=== PATIENT | female | born 1985 | race Caucasian/White ===

== ENCOUNTER 2022-05-07 17:14 | Emergency (ER) | payer MEDICAID, SELFPAY ==
[~2022-05-07] VITALS: Ht 166.4 cm; Wt 106.8 kg
[~2022-05-07 17:14] MED LIST: CIPR-259 PO
[2022-05-07 18:25] LABS: BASOPHILS # (AUTO) 0.1 X10'3 (0-0.2); BASOPHILS % (AUTO) 0.7 % (0-1); EOSINOPHILS # (AUTO) 0.1 X10'3 (0-0.9); EOSINOPHILS % (AUTO) 0.9 % (0-6); HEMATOCRIT 38.6 % (35.0-45.0); HEMOGLOBIN 13.1 g/dl (12.0-16.0); LYMPHOCYTES % (AUTO) 28.6 % (21-51); MEAN CORPUSCULAR HEMOGLOBIN 27.5 PG (27.0-31.0); MEAN CORPUSCULAR HGB CONC 33.9 g/dL (33.0-36.5); MEAN CORPUSCULAR VOLUME 81.2 FL (78-98); MEAN PLATELET VOLUME 8.3 FL (7.4-10.4); MONOCYTES # (AUTO) 0.6 X10'3 (0-0.9); MONOCYTES % (AUTO) 5.6 % (2-12); NEUTROPHILS # (AUTO) 6.7 X10'3 (1.8-7.7); NEUTROPHILS % (AUTO) 64.2 % (42-75); PLATELET COUNT 257 X10'3 (140-440); RED BLOOD COUNT 4.76 X10'6 (4.20-5.60); RED CELL DISTRIBUTION WIDTH 13.6 % (11.5-14.5); WHITE BLOOD COUNT 10.5 X10'3 (4.5-11.0)
[2022-05-07 18:44] LABS: ALANINE AMINOTRANSFERASE 33 U/L (12-78); ALBUMIN 4.1 G/DL (3.4-5.0); ALBUMIN/GLOBULIN RATIO 1.1 (1.1-1.5); ALKALINE PHOSPHATASE 87 IU/L (46-116); AMYLASE 57 U/L (25-115); ANION GAP 9 (8-16); ASPARTATE AMINO TRANSFERASE 17 U/L (10-37); BILIRUBIN,TOTAL 0.2 MG/DL (0.1-1.0); BLOOD UREA NITROGEN 19 MG/DL (7-18); BUN/CREATININE RATIO 23.5 (6.6-38.0); CHLORIDE 105 MMOL/L (99-107); CREATININE 0.81 MG/DL (0.40-0.90); GLUCOSE 90 MG/DL (70-104); LIPASE 110 U/L (73-393); POTASSIUM 3.8 MMOL/L (3.5-5.1); SODIUM 142 MMOL/L (135-145); TOTAL CARBON DIOXIDE 27.7 MMOL/L (24-32); TOTAL PROTEIN 7.8 G/DL (6.4-8.2); eGFR 80 ML/MIN
[2022-05-07 18:50] LABS: CALCIUM 9.3 MG/DL (8.5-10.1)
--- NOTE | 2022-05-07 19:12 | NUR ---
Ultra-sound studies in progress.
[2022-05-07] MEDS ORDERED: ondansetron 4mg rapidly disintigrating tab PO ONE (19:35)
[2022-05-07] MEDS ORDERED: TRAM50TA2 PO (19:35)
[2022-05-07] MEDS ORDERED: traMADol 50MG tablet PO ONE (19:35)
[2022-05-07] MEDS ORDERED: ONDA4TAB12 PO (19:35)
[2022-05-07 20:11] VITALS: BP 128/80
== END 2022-05-07 20:05 | disposition home or self-care (01) ==
LOC: ER 17:14
DX: R10.11 Right upper quadrant pain (principal); R07.89 Other chest pain; R11.0 Nausea; Z90.710 Acquired absence of both cervix and uterus; Z72.89 Other problems related to lifestyle; Z88.1 Allergy status to other antibiotic agents; Z88.8 Allergy status to other drugs, medicaments and biological substances; Z79.2 Long term (current) use of antibiotics
CPT/HCPCS: 36415; 71045; 76700; 80053; 82150; 83690; 83880; 84484; 85025; 93005; 99285

== ENCOUNTER 2024-11-02 07:11 | Emergency (ER) | payer MEDICAID, OTHER ==
[~2024-11-02] VITALS: Ht 165.1 cm; Wt 77.3 kg
[~2024-11-02 07:11] MED LIST changes: +ONDA-243 PO
[2024-11-02 07:16] VITALS: TEMP 97
[2024-11-02] MEDS ORDERED: ALB0.5UD IH (08:42)
[2024-11-02] MEDS ORDERED: PRED5TAB PO (08:42)
[2024-11-02] MEDS ORDERED: ADAL40PE5 SUBCUT (08:42)
[2024-11-02] MEDS: ibuprofen tablet 400 MG TABLET PO ONE (09:20)
[2024-11-02] MEDS: diazepam 5mg tablet PO ONE (09:20)
[2024-11-02] MEDS: morphine 10mg/ml inj. IM ONE (09:20)
[2024-11-02] MEDS: ondansetron 4mg rapidly disintigrating tab PO ONE (09:20)
[2024-11-02] MEDS ORDERED: TIZA4CAP PO (11:10)
[2024-11-02] MEDS ORDERED: NAPR-56 PO (11:10)
[2024-11-02] MEDS ORDERED: tizanidine 4mg tablet PO PRN (11:15)
[2024-11-02] MEDS: oxyCODONE/APAP 10/325mg tablet PO ONE (11:30)
[2024-11-02 13:33] VITALS: BP 124/86; PULSE 66; RESP 14; O2SAT 100
== END 2024-11-02 13:36 | disposition home or self-care (01) ==
LOC: ER 07:13
DX: S39.012A Strain of muscle, fascia and tendon of lower back, initial encounter (principal); Z88.0 Allergy status to penicillin; Z88.8 Allergy status to other drugs, medicaments and biological substances; Z90.710 Acquired absence of both cervix and uterus; W01.0XXA Fall on same level from slipping, tripping and stumbling without subsequent striking against object, initial encounter; Y93.89 Activity, other specified; Y92.89 Other specified places as the place of occurrence of the external cause; Y99.8 Other external cause status
CPT/HCPCS: 72100; 72131; 73502; 96372; 99285; J2274

== ENCOUNTER 2024-11-03 09:32 | Emergency (ER) | payer MEDICAID ==
[~2024-11-03] VITALS: Ht 165.1 cm; Wt 77.5 kg
[~2024-11-03 09:32] MED LIST changes: +ADAL40PE5 SUBCUT; +ALB0.5UD IH; +NAPR-56 PO; +PRED5TAB PO; +TIZA4CAP PO
[2024-11-03 09:34] VITALS: BP 169/79; PULSE 84; RESP 18; TEMP 98.1; O2SAT 100
== END 2024-11-03 11:15 | disposition left against medical advice (07) ==
LOC: ER 09:33
DX: M54.50 Low back pain, unspecified (principal); M25.551 Pain in right hip; Z88.0 Allergy status to penicillin; Z53.21 Procedure and treatment not carried out due to patient leaving prior to being seen by health care provider; Z88.8 Allergy status to other drugs, medicaments and biological substances

== ENCOUNTER 2025-02-16 18:32 | Emergency (ER) | payer MEDICAID ==
[~2025-02-16] VITALS: Ht 165.1 cm; Wt 77.3 kg
[~2025-02-16 18:32] MED LIST changes: -NAPR-56 PO
[2025-02-16 18:59] LABS: BASOPHILS # (AUTO) 0.1 X10'3 (0-0.2); BASOPHILS % (AUTO) 0.8 % (0-1); EOSINOPHILS # (AUTO) 0.3 X10'3 (0-0.9); EOSINOPHILS % (AUTO) 3.2 % (0-6); HEMATOCRIT 35.8 % (35.0-45.0); HEMOGLOBIN 12.1 g/dl (12.0-16.0); LYMPHOCYTES # (AUTO) 2.6 X10'3 (1.1-4.8); LYMPHOCYTES % (AUTO) 30.7 % (21-51); MEAN CORPUSCULAR HEMOGLOBIN 29.2 PG (27.0-31.0); MEAN CORPUSCULAR HGB CONC 33.8 g/dL (33.0-36.5); MEAN CORPUSCULAR VOLUME 86.4 FL (78-98); MEAN PLATELET VOLUME 7.8 FL (7.4-10.4); MONOCYTES # (AUTO) 0.5 X10'3 (0-0.9); MONOCYTES % (AUTO) 6.1 % (2-12); NEUTROPHILS % (AUTO) 59.2 % (42-75); PLATELET COUNT 229 X10'3 (140-440); RED BLOOD COUNT 4.14 X10'6 (4.20-5.60); RED CELL DISTRIBUTION WIDTH 13.3 % (11.5-14.5); WHITE BLOOD COUNT 8.5 X10'3 (4.5-11.0)
[2025-02-16 19:14] LABS: ALANINE AMINOTRANSFERASE 43 U/L (12-78); ALBUMIN 3.7 G/DL (3.4-5.0); ALBUMIN/GLOBULIN RATIO 1.2 (1.1-1.5); ALKALINE PHOSPHATASE 88 IU/L (46-116); ANION GAP 3 (8-16); ASPARTATE AMINO TRANSFERASE 20 U/L (10-37); BILIRUBIN,TOTAL 0.4 MG/DL (0.1-1.0); BLOOD UREA NITROGEN 12 MG/DL (7-18); BUN/CREATININE RATIO 15.4 (10.0-20.0); CALCIUM 8.9 MG/DL (8.5-10.1); CHLORIDE 107 MMOL/L (99-107); CREATININE 0.78 MG/DL (0.40-0.90); GLUCOSE 95 MG/DL (70-104); LIPASE 47 U/L (16-77); SODIUM 143 MMOL/L (135-145); TOTAL CARBON DIOXIDE 32.9 MMOL/L (24-32); TOTAL PROTEIN 6.9 G/DL (6.4-8.2); eCRCL 88 ML/MIN; eGFR 83 ML/MIN
[2025-02-16] MEDS ORDERED: PRED20TA PO (19:27)
[2025-02-16] MEDS ORDERED: OMEP40CA21 PO (19:27)
--- NOTE | 2025-02-16 19:27 | Physician Documentation ---
History of Present Illness Chief Complaint: Abdominal Pain Stated Complaint: CROHN'S FLAIR UP Time Seen by MD: 18:56 Primary Medical Doctor: [facility] in [facility] 49-year-old female presents to the ED with a complaint of the Crohn's flare-up. He has been managed in the outpatient setting and her doctor stated that she did have elevated ferritin levels and signs of inflammation. Reports overall most body pain some and GI pain combined. Medication Reconciliation Allergies: Coded Allergies: amoxicillin (Verified Allergy, Unknown, hives, 11/03/24) sumatriptan (Verified Allergy, Unknown, 11/03/24) Scheduled Adalimumab (Humira Pen), 1 SYR SUBCUT Q2W, (Reported) Ciprofloxacin HCl (Cipro), 1 TABLET PO BID Prednisone* (Prednisone*), 4 TAB PO DAILY, (Reported) Tizanidine Hcl (Zanaflex), 1 CAP PO Q8H Scheduled PRN Albuterol Sulfate Nebs* (Proventil Nebs*), 2.5 MG IH Q4H PRN for SOB or wheezing, (Reported) ONDANSETRON ODT 4mg tablet (Ondansetron Odt), 1 TABLET PO Q6H PRN for nausea/vomiting Past Medical History Past Medical History: No Pertinent History Past Surgical History: hysterectomy Alcohol Use: Occasionally Drug Use: none Lives with: Family Lives In: Home Occupation: employed Review of Systems All Other Systems at this time: Reviewed and Negative ROS As stated above in the HPI, otherwise all systems are reviewed and negative. Physical Exam Vital Signs: Heart Rate: 83, Respiratory Rate: 16, BP: 116/71, Pulse Oximetry: 99, Weight: 77.270 Oxygen Flow Rate: 0 Physical Exam General: Alert, no apparent distress. Cardiovascular: Regular rate and rhythm, no murmurs. Gastrointestinal: Soft, tender midepigastric Neurologic: Oriented x4. Skin: Normal color, warm and dry. No edema, no ecchymosis. Progress Results/Orders Results/Orders Vital Signs 02/16/25 18:37 Pulse 83 Resp 16 B/P (MAP) 116/71 Pulse Ox 99 O2 Flow Rate 0 Laboratory Tests Test 02/16/25 18:53 White Blood Count 8.5 Red Blood Count 4.14 L Hemoglobin 12.1 Hematocrit 35.8 Mean Corpuscular Volume 86.4 Mean Corpuscular Hemoglobin 29.2 Mean Corpuscular Hemoglobin Concent 33.8 Red Cell Distribution Width 13.3 Platelet Count 229 Mean Platelet Volume 7.8 Neutrophils (%) (Auto) 59.2 Lymphocytes (%) (Auto) 30.7 Monocytes (%) (Auto) 6.1 Eosinophils (%) (Auto) 3.2 Basophils (%) (Auto) 0.8 Neutrophils # (Auto) 5.0 Lymphocytes # (Auto) 2.6 Monocytes # (Auto) 0.5 Eosinophils # (Auto) 0.3 Basophils # (Auto) 0.1 CBC Comment Sodium Level 143 Potassium Level 5.0 Chloride Level 107 Carbon Dioxide Level 32.9 H Anion Gap 3 L Blood Urea Nitrogen 12 Creatinine 0.78 Estimated GFR/1.73 m2 83 BUN/Creatinine Ratio 15.4 Glucose Level 95 Calcium Level 8.9 Total Bilirubin 0.4 Aspartate Amino Transf (AST/SGOT) 20 Alanine Aminotransferase (ALT/SGPT) 43 Alkaline Phosphatase 88 Total Protein 6.9 Albumin 3.7 Globulin 3.2 Albumin/Globulin Ratio 1.2 Lipase 47 Chemistry Comments Medical Decision Making Findings This patient's laboratory values are very reassuring no signs of infectious processes or electrolyte abnormalities. she is being followed in the outpatient setting . I don't see any reason pursue further evaluation. Started on prednisone taper and start her on omeprazole has a proton pump inhi bitor Differential Dx:Considerations: Include: AAA, -Complete, - Incomplete, -Inevitable, -Missed, -Threatened, Abruptio placentae, Angina/MO, Aortic dissection, Appendicitis, Bowel obstruction, Cholangitis, Cholelithasis, Constipation, Diverticular disease, Esophageal rupture, Esophagitis, Gastritis/PUD, Gastroenteritis, GI hemorrhage, Hernia, Hepatitis, Inflammatory BD, Ischemic bowel, Ovarian cyst/torsion, Pancreatitis, PID, Porphyria, Trauma, intraabdominal, Urinary obstruction, Urinary tract infection, Urolithiasis, Other Departure Disposition: HOME / SELF CARE / HOMELESS Impression: Primary Impression: Abdominal pain Additional Impression: Crohn disease Discharge Instructions: Crohn's Disease Referrals: NO PRIMARY CARE PROVIDER (PCP) Prescriptions Omeprazole (Prilosec) 40 Mg Capsule 1 CAP PO DAILY for 30 Days, #30 CAP Prov: SONG MARTINEZ VICE PRESIDENT OF INSTRUCTION 02/16/25 Prednisone* (Prednisone*) 20 Mg Tablet 1 TAB PO Q12H for 5 Days, #10 TAB Prov: SONG MARTINEZ VICE PRESIDENT OF INSTRUCTION 02/16/25 Education Educated: Patient Signature Scribe Signature: g Attestation: The note accurately reflects work and decisions made by me.Song Martinez - PACHECO 02/16/25 19:25 SONG MARTINEZ NP February 16, 2025 19:26
[2025-02-16] MEDS: predniSONE 20 mg tablet PO ONE (20:05)
[2025-02-16] MEDS: HYDROcodone/acetaminophen 10/325mg tab PO ONE (20:06)
[2025-02-16 20:08] VITALS: BP 122/87; PULSE 132; RESP 20; O2SAT 97
== END 2025-02-16 20:11 | disposition home or self-care (01) ==
LOC: ER 18:33
DX: K50.90 Crohn's disease, unspecified, without complications (principal); Z88.1 Allergy status to other antibiotic agents; Z88.8 Allergy status to other drugs, medicaments and biological substances; Z90.710 Acquired absence of both cervix and uterus; Z79.899 Other long term (current) drug therapy; Z72.89 Other problems related to lifestyle
CPT/HCPCS: 36415; 80053; 83690; 85025; 99283; J7512

== ENCOUNTER 2025-04-08 20:42 | Emergency (ER) | payer MEDICAID ==
[~2025-04-08] VITALS: Ht 165.1 cm; Wt 71.0 kg
[2025-04-08 20:54] VITALS: TEMP 98
--- NOTE | 2025-04-08 22:33 | Physician Documentation ---
History of Present Illness ~ Chief Complaint: Abdominal Pain Stated Complaint: ABD PAIN Time Seen by MD: 22:32 Primary Medical Doctor: [facility] in [facility] Patient presents to the emergency room with two month history of nausea vomiting and abdominal pain. She endorses history of Crohn's. She has been referred to [facility] for her Crohn's diagnosis. She was seen earlier today at [facility] labs were performed which were reassuring. It Zofran and prednisone was also prescribed. She states she continues to have significant nausea and whole- body pain. No fevers and no bloody stools reported. Medication Reconciliation Allergies: Coded Allergies: amoxicillin (Verified Allergy, Unknown, hives, 04/08/25) sumatriptan (Verified Allergy, Unknown, 04/08/25) Scheduled Adalimumab (Humira Pen), 1 SYR SUBCUT Q2W, (Reported) Ciprofloxacin HCl (Cipro), 1 TABLET PO BID Prednisone* (Prednisone*), 4 TAB PO DAILY, (Reported) Tizanidine Hcl (Zanaflex), 1 CAP PO Q8H Scheduled PRN Albuterol Sulfate Nebs* (Proventil Nebs*), 2.5 MG IH Q4H PRN for SOB or wheezing , (Reported) ONDANSETRON ODT 4mg tablet (Ondansetron Odt), 1 TABLET PO Q6H PRN for nausea/vomiting Past Medical History Past Medical History: No Pertinent History Past Surgical History: hysterectomy Alcohol Use: Occasionally Drug Use: none Lives with: Family Lives In: Home Occupation: employed Review of Systems ROS All review of systems negative except as per HPI Physical Exam Vital Signs: Temperature: 98.0, Source: Oral, Heart Rate: 62, Respiratory Rate: 14, BP: 116/81, Pulse Oximetry: 99, Weight: 71.000 Oxygen Flow Rate: 0 Physical Exam General: Patient is awake, alert, oriented x4 in no acute distress Head: Normocephalic and atraumatic. Eyes: Conjunctival normal. EOMI. PERRL. ENT: Mucous membranes moist. Neck: Supple, trachea is midline. Chest: Clear to auscultation bilaterally without rales, rhonchi, or wheezes. There is no accessory muscle use or retractions. Cardiac: RRR without murmurs, gallops, or rubs. Abd: Soft, nondistended, epigastric tenderness to palpation without peritonitis Progress Results/Orders Results/Orders Completed Orders - MIKI DODSON MD Normal Saline 1000ml (0.9% Sodium Chlori (04/08/25 22:50) Ondansetron Inj. (Zofran 4mg/2ml Vial) (04/08/25 22:50) Metoclopramide Inj (Reglan Inj) (04/08/25 22:50) Diphenhydramine Inj (Benadryl Inj.) (04/08/25 22:50) Acetaminophen 1,000mg/100ml Iv (Ofirmev (04/08/25 22:50) Fentanyl/Pf (Fentanyl 0.05 Mg/Ml Syringe (04/08/25 22:50) Medications Received in ER Medications (Trade) Dose Ordered Sig/Radha Route PRN Reason Start Time Stop Time Status Last Admin Dose Admin Sodium Chloride 1,000 ml @ 1,000 mls/hr ONCE ONCE IV 04/08/25 22:50 04/08/25 23:49 DC 04/08/25 23:20 1,000 MLS/HR (Zofran 4mg/2ml vial) 8 mg ONCE ONCE IV 04/08/25 22:50 04/08/25 22:52 DC 04/08/25 23:04 8 MG (Reglan inj) 10 mg ONCE ONCE IV 04/08/25 22:50 04/08/25 22:52 DC 04/08/25 23:08 10 MG (Benadryl inj.) 25 mg ONCE ONCE IV 04/08/25 22:50 04/08/25 22:52 DC 04/08/25 23:20 25 MG Acetaminophen 100 ml @ 400 mls/hr ONCE ONCE IV 04/08/25 22:50 04/08/25 23:04 DC 04/08/25 23:20 400 MLS/HR (fentaNYL 0.05 MG/ML syringe) 50 mcg ONCE ONCE IV 04/08/25 22:50 04/08/25 22:52 DC 04/08/25 23:15 50 MCG Vital Signs 04/08/25 04/08/25 04/08/25 04/08/25 20:54 22:17 22:23 23:15 Temp 98.0 Pulse 87 62 Resp 16 14 18 B/P (MAP) 113/76 116/81 (93) Pulse Ox 96 99 O2 Flow Rate 0 Medical Decision Making Findings Patient presents to the emergency room with two month history of vomiting and joint pains. Differentials include but are not limited to fibromyalgia electrolyte disturbances dehydration gastroparesis gastritis cholecystitis therefore emergent labs were considered however [facility] showed that patient's labs today were reassuring and given onset of symptoms I do not feel repeat emergent labs is necessary. Discussed CT scan with the patient and utilizing shared decision-making we will defer any CT scans at this time and treat her symptomatically. Patient's symptoms improved. ER precautions discussed as well as the knees follow up with her doctors Departure Disposition: HOME / SELF CARE / HOMELESS Impression: Primary Impression: Myalgia Additional Impression: Vomiting Condition: Stable Discharge Instructions: Nausea and Vomiting, Adult Referrals: NO PRIMARY CARE PROVIDER (PCP) Prescriptions Hydrocodone Bit/Acetaminophen 5/325 MG (Dike 5/325 MG) 5 Mg/325 Mg Tablet 1 TAB PO Q4-6 hours PRN for pain, #10 TAB Prov: MIKI DODSON MD 04/09/25 Metoclopramide Hcl* (Metoclopramide Hcl*) 10 Mg Tablet 1 TAB PO Q6H for Nausea, #20 TAB Prov: MIKI DODSON MD 04/09/25 Education Educated: Patient Educated regarding: diagnosis, treatment, need for follow up Signature Scribe Signature: No scribe Attestation: The note accurately reflects work and decisions made by me.Miki Dodson MD 04/09/25 00:11 MIKI DODSON MD Apr 08, 2025 22:33
[2025-04-08] MEDS: ondansetron/PF 4mg/2ml inj IV ONE (23:04)
[2025-04-08] MEDS: metoclopramide 5 mg/ml inj IV ONE (23:08)
[2025-04-08] MEDS: fentaNYL/PF 50MCG/1 ML 2ML syringe IV ONE (23:15)
[2025-04-08] MEDS: acetaminophen 1,000mg/100ml IV 100 ML IV ONE (23:20)
[2025-04-08] MEDS: normal saline 1000ml 1,000 ML IV ONE (23:20)
[2025-04-09] MEDS ORDERED: METO10TA3 PO (00:11)
[2025-04-09] MEDS ORDERED: HYDR-3965 PO (00:11)
[2025-04-09 01:45] VITALS: BP 123/75; PULSE 60; O2SAT 98
[2025-04-09 01:47] VITALS: RESP 16
[2025-04-09] MEDS: fentaNYL/PF 50MCG/1 ML 2ML syringe IV ONE (01:47)
== END 2025-04-09 02:05 | disposition home or self-care (01) ==
LOC: ER 20:43
DX: M79.18 Myalgia, other site (principal); R10.816 Epigastric abdominal tenderness; R11.2 Nausea with vomiting, unspecified; Z88.0 Allergy status to penicillin; Z88.8 Allergy status to other drugs, medicaments and biological substances
CPT/HCPCS: 96365; 96366; 96375; 96376; 99284; J0131; J1200; J2405; J2765; J3010; J7030

== ENCOUNTER 2025-05-30 18:47 | Emergency (ER) | payer MEDICAID ==
[~2025-05-30] VITALS: Ht 165.1 cm; Wt 72.2 kg
[2025-05-30 19:21] VITALS: BP 108/63; PULSE 74; O2SAT 99
[2025-05-30 19:49] LABS: LEUKOCYTE ESTERASE ,URINE MODERATE (Neg); NITRITES, URINE POSITIVE (Neg); OCCULT BLOOD,URINE LARGE (Neg); URINE HCG NEGATIVE (NEG)
[2025-05-30 19:53] LABS: UA COLLECTION TYPE CLN CATCH MIDSTREAM
[2025-05-30 19:56] LABS: SQUAMOUS EPITHELIAL CELL,UR FEW /LPF (FEW)
[2025-05-30 21:00] LABS: MEAN PLATELET VOLUME 7.9 FL (7.4-10.4); RED CELL DISTRIBUTION WIDTH 13.4 % (11.5-14.5)
[2025-05-30 21:17] LABS: CREATININE 0.84 MG/DL (0.40-0.90); TOTAL CARBON DIOXIDE 32.5 MMOL/L (24-32); eCRCL 82 ML/MIN; eGFR 76 ML/MIN
[2025-05-30] MEDS ORDERED: cefpodoxime proxetil 100mg tablet PO SCH (21:30)
[2025-05-30] MEDS ORDERED: PHEN-824 PO (21:32)
[2025-05-30] MEDS ORDERED: CEFP200T13 PO (21:32)
--- NOTE | 2025-05-30 21:36 | Physician Documentation ---
History of Present Illness ~ Chief Complaint: Abdominal Pain Stated Complaint: PELVIC PAIN Time Seen by MD: 20:03 Primary Medical Doctor: [facility] in [facility] This is a 39-year-old female who presents for evaluation of several days of dysuria, frequency, sensation of incomplete voiding, suprapubic pain and left- sided flank pain. Similar to prior urinary tract infections. The particular palliating or aggravating factors. Did not attempt to treat it. Denies any fever or chills. Denies any nausea or vomiting. Denies any concern for tobacco, alcohol or illicit substances use Medication Reconciliation Allergies: Coded Allergies: amoxicillin (Verified Allergy, Unknown, hives, 04/08/25) sumatriptan (Verified Allergy, Unknown, 04/08/25) Scheduled Adalimumab (Humira Pen), 1 SYR SUBCUT Q2W, (Reported) Ciprofloxacin HCl (Cipro), 1 TABLET PO BID Prednisone* (Prednisone*), 4 TAB PO DAILY, (Reported) Tizanidine Hcl (Zanaflex), 1 CAP PO Q8H Scheduled PRN Albuterol Sulfate Nebs* (Proventil Nebs*), 2.5 MG IH Q4H PRN for SOB or wheezing, (Reported) ONDANSETRON ODT 4mg tablet (Ondansetron Odt), 1 TABLET PO Q6H PRN for nausea/vomiting Past Medical History Past Medical History: No Pertinent History Past Surgical History: hysterectomy Alcohol Use: Occasionally Drug Use: none Lives with: Family Lives In: Home Occupation: employed Review of Systems ROS 10 point review of systems was performed and unless noted above in HPI is negative for acute process/complaint. Physical Exam Vital Signs: Temperature: 98.5, Source: Oral, Heart Rate: 74, Respiratory Rate: 16, BP: 108/63, Pulse Oximetry: 99, Weight: 72.200 Physical Exam Physical examination: GENERAL: Awake, alert, oriented, GCS 15, no apparent distress, non-toxic appearing, answers questions, follows commands appropriately. Examined in triage HEENT: Atraumatic, normocephalic, pupils equal, extraocular muscles intact Active gross movements, sclerae anicteric, mucus membranes moist, no stridor. NECK: Midline, no JVD CARDIOVASCULAR: Good skin perfusion without evidence of pallor, mottling. PULMONARY: Nonlabored, symmetric chest rise, no audible wheezing, no accessory muscle use, no respiratory distress, speaking in full sentences. GASTROINTESTINAL: Not distended. NEUROLOGIC: Lucid with normal mental status. Normal facial symmetry. Moves all extremities symmetrically and with purpose. No truncal ataxia. Speech is fluid without evidence of dysarthria or aphasia, no focal deficits appreciated. EXTREMITIES: Acute deformities Skin: warm, dry PSYCHIATRIC: Normal affect, normal insight, normal concentration. Focused exam: [] Progress Results/Orders Results/Orders Orders - ABHILASH DIAZ DO Cult Urine + [address] (05/30/25 19:57) Completed Orders - ABHILASH DIAZ DO Hcg, Ur Ql (05/30/25 19:27) Ua W/Microscopic, Cult If Ind (05/30/25 19:30) Vital Signs 05/30/25 19:21 Temp 98.5 Pulse 74 Resp 16 B/P (MAP) 108/63 Pulse Ox 99 Laboratory Tests Test 05/30/25 19:30 05/30/25 20:54 Urine Specimen Description Cln catch midstream Urine Color Yellow Urine Clarity Cloudy Urine pH 6.0 Urine Specific [place] 1.025 Urine Protein 100 H Urine Glucose (UA) Negative Urine Ketones Negative Urine Occult Blood Large H Urine Nitrite Positive H Urine Bilirubin Negative Urine Urobilinogen 0.2 Urine Leukocyte Esterase Moderate H Urine RBC 50-100 Urine WBC Tntc H Urine Squamous Epithelial Cells Few Urine Bacteria 3+ Urine Culture Indicated Indicated Volume Urine Centrifuged 10 ml Urine HCG, Qualitative Negative Urine Comment White Blood Count 12.3 H Red Blood Count 4.28 Hemoglobin 12.8 Hematocrit 37.4 Mean Corpuscular Volume 87.5 Mean Corpuscular Hemoglobin 29.9 Mean Corpuscular Hemoglobin Concent 34.2 Red Cell Distribution Width 13.4 Platelet Count 255 Mean Platelet Volume 7.9 Neutrophils (%) (Auto) 74.7 Lymphocytes (%) (Auto) 17.2 L Monocytes (%) (Auto) 5.8 Eosinophils (%) (Auto) 1.9 Basophils (%) (Auto) 0.4 Neutrophils # (Auto) 9.1 H Lymphocytes # (Auto) 2.1 Monocytes # (Auto) 0.7 Eosinophils # (Auto) 0.2 Basophils # (Auto) 0.1 CBC Comment Sodium Level 141 Potassium Level 4.3 Chloride Level 104 Carbon Dioxide Level 32.5 H Anion Gap 5 L Blood Urea Nitrogen 14 Creatinine 0.84 Estimated GFR/1.73 m2 76 BUN/Creatinine Ratio 16.7 Glucose Level 78 Calcium Level 9.3 Total Bilirubin 0.8 Aspartate Amino Transf (AST/SGOT) 19 Alanine Aminotransferase (ALT/SGPT) 37 Alkaline Phosphatase 83 Total Protein 7.4 Albumin 4.1 Globulin 3.3 Albumin/Globulin Ratio 1.2 Lipase 34 Chemistry Comments Microbiology Date/Time Source Procedure Growth Status 05/30/25 19:57 Urine Clean Catch Midstream Urine Culture - Preliminary Culture received. Resulted Medical Decision Making Findings Facility Status: ED Holds, [facility] process The plan was discussed with the patient, who demonstrates clear understanding of the plan and is in agreement with the plan unless otherwise noted in the chart. All questions have been answered, all concerns were addressed unless otherwise documented. I was available throughout their ED stay for frequent reassessment and questions. Differential Diagnoses (considered and possible or likely): [Urinary tract infection, pyelitis, pyelonephritis, less likely sepsis, well-appearing, unlikely emphysematous pyelonephritis.] ??Differential Diagnoses (considered and unlikely, not requiring evaluation c urrently): [No evidence of trauma. Unlikely to represent acute intra-abdominal process requiring surgical intervention] MDM Data Please see [facility] for the following: Independent Historians and external Records Review. Historian: [Patient] Independent Historians: ?[Record review] Medication Management: [Reviewed medication list] Social History and determinants: [Reviewed] Please see the body of the note for the following: Any independent interpretat ions of ECG, imaging studies. All vitals signs/haemodynamics, ordered tests were independently reviewed and interpreted by myself. Nursing triage complaint and vitals reviewed, additional nursing notes were reviewed as available and I agree unless otherwise noted or documented in contradiction in the chart Vital Signs: Independently reviewed Labs: Independently interpreted Imaging: Independently interpreted Old Medical Records: Independently reviewed, see [facility] for relevant summary and information Pulse Oximetry: [96%] interpreted as [normal on room air] by me Additionally notably showing: [Hemodynamically stable. Minimal leukocytosis. UA is fulminant with a positive for UTI. Normal renal function.] Tests considered but not ordered include: [Imaging does not appear to be necessary] Social Determinants of Health Impact: Patient was evaluated in [facility], or [facility] [place] access to healthcare due to below par ratio of patient to medical providers. [] Comorbid Conditions Impacting Present Evaluation and Care/Treatment: [Prior history of UTIs] Management Discussions with other Healthcare Providers: [None] Treatment and Disposition Medication Management (Given or considered): [Pain management, initial dose of antibiotics]. See EMR for details Consideration for Hospitalization/Escalation/Deescalation of Care: Admission for observation has been considered, [however the patient is able to tolerate p.o., their symptoms are controlled, they are able to rely on oral medications, and their chief complaint/diagnosis can be managed on outpatient basis.] ?ED Course:?[No clinical deterioration] ?Shared decision making: Patient is hemodynamically stable for discharge home with follow with their primary care provider. [ ] Specific and cautious return precautions provided and discussed with full understanding. Any incidental findings were also discussed and follow up recommendations given. [] All questions answered. Patient/family were able to verbalize back return precautions. Patient/family agree to plan. Copies of imaging and laboratory studies were provided. Code status:?FULL Please see the full Electronic Medical Record for full details of nursing documentation, medications list, other records of complete past medical history and conditions, vital signs, laboratory studies, and any radiologic study interpretations by radiologists. Portions of this note were completed using [employer] dictation software and as a result there may exist minor errors in spelling. I have reviewed elements of past family and social history and agree as included in note. Departure Disposition: 01 HOME / SELF CARE / HOMELESS Impression: Primary Impression: Pyelonephritis Condition: Improved Discharge Instructions: Pyelonephritis, Adult Referrals: NO PRIMARY CARE PROVIDER (PCP) Prescriptions Cefpodoxime Proxetil (Vantin) 200 Mg Tablet 1 TAB PO Q12H for 7 Days, #14 TAB Prov: ABHILASH DIAZ DO 05/30/25 Phenazopyridine HCl (Pyridium) 100 Mg Tablet 1 TAB PO Q8H for urinary discomfort for 2 Days, #6 TAB 0 Refills Prov: ABHILASH DIAZ DO 05/30/25 Education Educated: Patient Educated regarding: diagnosis, treatment, prognosis, need for follow up Signature Scribe Signature: No scribe Attestation: This note accurately reflects clinical decisions, work performed by myself, DO EMILY Rievra NICHOLAS M DO May 30, 2025 21:36
[2025-05-30 22:08] VITALS: RESP 16
[2025-05-30] MEDS: phenazopyridine 100mg tablet PO ONE (22:24)
[2025-05-30 22:27] VITALS: TEMP 98.5
== END 2025-05-30 22:30 | disposition home or self-care (01) ==
LOC: ER 18:48
DX: N12 Tubulo-interstitial nephritis, not specified as acute or chronic (principal); Z88.0 Allergy status to penicillin; Z88.8 Allergy status to other drugs, medicaments and biological substances; Z90.710 Acquired absence of both cervix and uterus
CPT/HCPCS: 36415; 80053; 81001; 81025; 83690; 85025; 87077; 87088; 87186; 99283

== ENCOUNTER 2025-05-31 08:56 | Inpatient (IN) | payer MEDICAID ==
[~2025-05-31] VITALS: Ht 165.1 cm; Wt 69.3 kg
[~2025-05-31 08:56] MED LIST changes: +CEFP200T13 PO; +PHEN-824 PO
--- NOTE | 2025-05-31 09:36 | Physician Documentation ---
History of Present Illness ~ Chief Complaint: Flank Pain Stated Complaint: KIDNEY INFECTION Time Seen by MD: 09:59 OK to notify your PCP?: Yes Primary Medical Doctor: Werner Serna in [place] Source: patient, RN/, RN notes reviewed, old records Mode of Arrival: POV Exam Limitations: no limitations HPI HPI below by attending physician SON Douglass: BED 07 This patient is a 39 y/o female who presents to ED with chief complaint of abdominal pain and flank pain. Patient was seen here yesterday for these symptoms, and diagnosed with a kidney infection. She was discharged with antibiotics, but has not started taking them yet. She returns today stating her pain is uncontrollable, and she is also severely nauseated. She states her pain is localized in her lower abdomen, and she is also very sore in her flank area bilaterally. She denies any fevers or vomiting. Patient notes that she did have frequent kidney infections as a teenager. Patient is allergic to Penecillin. Patient denies any other associated symptoms at this time. Patient denies any other alleviating or exacerbating factors. Day of Onset: May 31, 2025 Medication Reconciliation Allergies: Coded Allergies: amoxicillin (Verified Allergy, Unknown, hives, 04/08/25) sumatriptan (Verified Allergy, Unknown, 04/08/25) Scheduled Adalimumab (Humira Pen), 1 SYR SUBCUT Q2W, (Reported) Cefpodoxime Proxetil (Vantin), 1 TAB PO Q12H Ciprofloxacin HCl (Cipro), 1 TABLET PO BID Phenazopyridine HCl (Pyridium), 1 TAB PO Q8H Prednisone* (Prednisone*), 4 TAB PO DAILY, (Reported) Tizanidine Hcl (Zanaflex), 1 CAP PO Q8H Scheduled PRN Albuterol Sulfate Nebs* (Proventil Nebs*), 2.5 MG IH Q4H PRN for SOB or wheez ing, (Reported) ONDANSETRON ODT 4mg tablet (Ondansetron Odt), 1 TABLET PO Q6H PRN for nausea /vomiting Past Medical History Past Medical History: UTI Past Surgical History: hysterectomy Smoking Status: Never smoker Alcohol Use: Occasionally Drug Use: none Lives with: Family Lives In: Home Occupation: employed Review of Systems All Other Systems at this time: Reviewed and Negative ROS As stated above in the HPI, otherwise all systems are reviewed and negative. Gastrointestinal: Reports: nausea Genitourinary: Reports: flank pain Physical Exam Vital Signs: RN Vital Signs have been reviewed: Yes, Temperature: 96.8, Source: Temporal, Heart Rate: 60, Respiratory Rate: 18, BP: 123/70, Pulse Oximetry: 100, Weight: 69.300 Oxygen Flow Rate: 0 Physical Exam General: Alert, no apparent distress. Respiratory: Lungs clear, no respiratory distress. Chest: No accessory muscle use. Cardiovascular: Regular rate and rhythm, no murmurs. Neurologic: Oriented x4. Psychiatric: Normal mood and affect. Skin: warm and dry. No edema, no ecchymosis. PE below by attending physician SON Douglass: General: Moderate distress secondary to pain. The patient is well developed, well nourished, nontoxic appearing. Skin: [place], warm and dry with no rashes. HEENT: Head was normocephalic and atraumatic. Eyes - pupils equal, round, reactive to light and accommodation. Extraocular movements were intact. Conjunctivae were nonicteric. The mouth and oropharynx were clear with moist mucous membranes. There were no pharyngeal exudates or erythema. Neck: Supple and nontender. There was no jugular venous distention, lymphadenopathy, thyromegaly or masses. Chest: Clear to auscultation bilaterally without wheezes, rales or rhonchi. No accessory muscle use. No dullness to percussion. Heart: Rate regular and rhythmic. S1, S2. No murmurs. Palpation of the chest wall was normal. No rubs or thrills. Abdomen: Superpubic tenderness to palpation. Abdomen otherwise soft and nondistended. Positive bowel sounds. No guarding or rebound. No hepatosplenomegaly or palpable masses. Back: Bilateral CVA tenderness, greater on the right than left. Extremities: No cyanosis, clubbing or edema. The patient moves all extremities. Pulses were equal and symmetric. Neurologic: Motor and sensation grossly intact. A & O x4. Psychologic: The patient was oriented to person, place and time. Progress Progress Note 1307: Paged Hospitalist 1319: Case discussed with hospitalist who agrees to evaluate patient for admission. Results/Orders Reviewed/noted all lab results: Yes Results/Orders Orders - OREN DOUGLASS MD Culture Blood (05/31/25 11:14) Normal Saline 1000ml (0.9% Sodium Chlori (05/31/25 11:15) Ct Abdomen Pelvis (05/31/25 11:16) Page Hospitalist (05/31/25 13:07) Fill Out Med Reconciliation (05/31/25 13:07) Completed Orders - OREN DOUGLASS MD Drug Screen, Urine (05/31/25 10:51) Procalcitonin (05/31/25 11:14) Ceftriaxone 2gm/D5w 50ml Bag (Rocephin 2 (05/31/25 11:15) Hydromorphone 1 Mg/Ml/Pf (Dilaudid Inj.) (05/31/25 11:15) Lacticsepsis (05/31/25 11:14) Ethanol (05/31/25 11:16) Ct Abdomen Pelvis (05/31/25 11:16) Medications Received in ER Medications (Trade) Dose Ordered Sig/Radha Route PRN Reason Start Time Stop Time Status Last Admin Dose Admin Sodium Chloride 2,000 ml @ 666.666 mls/hr ONCE ONCE IV 05/31/25 11:15 05/31/25 14:14 05/31/25 11:45 666.666 MLS/HR Ceftriaxone Sodium/Dextrose 50 ml @ 100 mls/hr ONCE ONCE IV 05/31/25 11:15 05/31/25 11:44 DC 05/31/25 11:41 100 MLS/HR (Dilaudid inj.) 1 mg ONCE ONCE IV 05/31/25 11:15 05/31/25 11:16 DC 05/31/25 11:41 1 MG Vital Signs 05/31/25 05/31/25 05/31/25 05/31/25 09:02 10:29 10:29 12:15 Temp 96.8 96.8 96.8 Pulse 60 55 50 Resp 18 16 16 B/P (MAP) 123/70 113/63 (80) 105/61 (76) Pulse Ox 100 100 98 O2 Flow Rate 0 0 0 Laboratory Tests Test 05/31/25 09:54 05/31/25 10:35 05/31/25 11:28 White Blood Count 8.1 Red Blood Count 4.21 Hemoglobin 12.5 Hematocrit 37.0 Mean Corpuscular Volume 87.7 Mean Corpuscular Hemoglobin 29.6 Mean Corpuscular Hemoglobin Concent 33.7 Red Cell Distribution Width 13.8 Platelet Count 261 Mean Platelet Volume 8.5 Neutrophils (%) (Auto) 65.7 Lymphocytes (%) (Auto) 24.4 Monocytes (%) (Auto) 6.8 Eosinophils (%) (Auto) 2.6 Basophils (%) (Auto) 0.5 Neutrophils # (Auto) 5.3 Lymphocytes # (Auto) 2.0 Monocytes # (Auto) 0.6 Eosinophils # (Auto) 0.2 Basophils # (Auto) 0.0 CBC Comment Sodium Level 139 Potassium Level 4.9 Chloride Level 103 Carbon Dioxide Level 31.4 Anion Gap 5 L Blood Urea Nitrogen 15 Creatinine 0.78 Estimated GFR/1.73 m2 83 BUN/Creatinine Ratio 19.2 Glucose Level 88 Calcium Level 9.0 Total Bilirubin 0.6 Aspartate Amino Transf (AST/SGOT) 21 Alanine Aminotransferase (ALT/SGPT) 42 Alkaline Phosphatase 87 Total Protein 7.4 Albumin 3.9 Globulin 3.5 Albumin/Globulin Ratio 1.1 Lipase 152 H Procalcitonin < 0.05 Chemistry Comments Ethyl Alcohol Level < 10 Urine Specimen Description Voided Urine Color [place] Urine Clarity Cloudy Urine pH Urine Specific [place] Urine Protein Urine Glucose (UA) Urine Ketones Urine Occult Blood Urine Nitrite Urine Bilirubin Urine Urobilinogen Urine Leukocyte Esterase Urine RBC 0-2 Urine WBC 30-50 H Urine WBC Clumps Few Urine Squamous Epithelial Cells Few Urine Bacteria 1+ Urine Mucus Few Urine Culture Indicated Indicated Volume Urine Centrifuged 10 ml Urine HCG, Qualitative Negative Urine Comment See note Urine Opiates Screen Negative Urine Methadone Screen Negative Urine Fentanyl Screen Negative Urine Barbiturates Screen Negative Urine Phencyclidine Screen Negative Urine Amphetamines Screen Negative Urine Benzodiazepines Screen Negative Urine Cocaine Screen Negative Urine Cannabinoids Screen Positive Drug Screen Comment Lactic Acid Level 1.1 Microbiology Date/Time Source Procedure Growth Status 05/31/25 11:36 Blood Iv Start Blood Culture - Preliminary NEGATIVE (LESS THAN 24 HOURS) Resulted 05/31/25 11:01 Urine Clean Catch Midstream Urine Culture - Preliminary Culture received. Resulted Re-Evaluation Re-Evaluation : Re-Evaluation: Improved Progress Patient was seen and examined. Patient is given reassurance. Patient looks ill uncomfortable nauseated having difficulty keeping fluids down as well as significant pain. She took Pyridium this morning for her pain but has not help. She has some chills as well. Patient was seen in the day prior received antibiotics and had pyelonephritis but chose to go home. She returns with worsening symptoms although clinically her laboratory work has a bit reassuring. Her CBC does not show any leukocytosis or left shift. Also her procalcitonin and lactic acid are also within normal limits. Patient's lipase is elevated at 152. She does have some slight pain in the left upper quadrant but the majority of her pain is in the suprapubic area. She also has some CVA tenderness on exam but most importantly she just does not appear well tox screen is positive only for marijuana alcohol is negative an urinalysis continues to show WBCs in the urine of 30-50 WBCs and WBCs in clumps. The sample has Pyridium and the mi croscopic evaluation is invalid. Patient received 30 milligrams/kilogram of fluids because she appeared he will look ill and needed aggressive hydration also Rocephin 2 g was given. Later however after laboratory work was completed I contacted the hospitalist who kindly agreed to admit the patient for further workup and care. Continuous nitroglycerin supervisor interpretation shows normal sinus rhythm heart rate 50s, no ectopy, normal, my interpretation. Pulse oximetry monitor interpretation shows normal oxygenation at 98% room air, normal, my interpretation. EKG/XRAY/CT/US/VASC/MRI CT : Interpreted By: radiologist CT: abdomen/pelvis With Contrast?: No Impression Patient: YANDY SALAS Medical Record: [id number] [facility] : 1985, Age: 39 Sex: Female Location: ER Patient Status: REG ER Service Date/Time: 05/31/251115 Ordering Physician: OREN DOUGLASS MD Exam: CT ABDOMEN PELVIS Exam: CT CT ABDOMEN PELVIS History: ABD PAIN Comparison Study: None TECHNIQUE: Multidetector CT of the abdomen was performed from lung bases to pubic symphysis. Imaging was performed without IV contrast. Axial, coronal and sagittal multiplanar reformats were obtained from the axial data set by the technologist. Radiation Dose Information: Dose-length product is 672 mGy*cm FINDINGS: Limited sections of the lung bases demonstrate no focal pulmonary mass. The liver, spleen, pancreas, and both adrenal glands demonstrate no acute findings. Hepatomegaly to 19.7 cm. The gallbladder is unremarkable. The stomach is unremarkable. The small bowel loops are not dilated. The appendix is not clearly identified, although there are no secondary signs of appendicitis. No colonic obstruction. Bilateral kidneys are unremarkable. No hydronephrosis. The urinary bladder is distended. No significant lymphadenopathy. No free air or free fluid. The aorta and IVC demonstrate no acute findings. Visualized osseous structures demonstrate no acute abnormality. IMPRESSION: 1. Limited evaluation in the absence of IV contrast. 2. No acute intra-abdominal process. 3. If there is continued concern for abdominal infection or pathology, CT with IV contrast is recommended. Electronically Signed by:SAE ERAZO MD Date & Time: 05/31/251324 Dictated by: SAE ERAZO MD Dictation date and time: 05/31/251324 Primary Care Provider: NO PRIMARY CARE PROVIDER cc: OREN DOUGLASS MD ~ EDMD Dr. Douglass reviewed imaging and agrees with above findings. Medical Decision Making Additional info obtained from: old records Differential Dx:Considerations: Include: Pneumonia, Other Departure Time of Disposition: 19:07 Disposition: ADMITTED INPATIENT Admitted to Inpatient Unit: yes, to hospitalist Admission Level of Care: Med/Surg Impression: Primary Impression: Pyelonephritis Additional Impressions: UTI (urinary tract infection) Qualified Codes: N39.0 - Urinary tract infection, site not specified Pancreatitis Qualified Codes: K85.90 - Acute pancreatitis without necrosis or infection, unspecified HTN (hypertension) Qualified Codes: I10 - Essential (primary) hypertension Condition: Guarded Referrals: NO PRIMARY CARE PROVIDER (PCP) Education Educated: Patient Educated regarding: diagnosis Signature Scribe Signature: Scribed for Oren Douglass MD by Chantel Ardon. 05/31/25 11:34 Attestation: The note accurately reflects work and decisions made by me.Oren Douglass MD 05/31/25 14:20 ANA LUISA MARTINEZ NP May 31, 2025 09:36 OREN DOUGLASS MD May 31, 2025 11:33
[2025-05-31 10:30] LABS: MEAN PLATELET VOLUME 8.5 FL (7.4-10.4); RED CELL DISTRIBUTION WIDTH 13.8 % (11.5-14.5)
[2025-05-31 10:49] LABS: URINE HCG NEGATIVE (NEG)
[2025-05-31 10:53] LABS: UA COLLECTION TYPE VOIDED
[2025-05-31 10:53] LABS: CREATININE 0.78 MG/DL (0.40-0.90); TOTAL CARBON DIOXIDE 31.4 MMOL/L (24-32); eCRCL 88 ML/MIN; eGFR 83 ML/MIN
[2025-05-31 11:01] LABS: MUCUS STRANDS FEW /LPF (Neg); SQUAMOUS EPITHELIAL CELL,UR FEW /LPF (FEW); WBC CLUMPS,URINE FEW /HPF (NEGATIVE)
[2025-05-31 11:26] LABS: URINE AMPHETAMINE SCREEN NEGATIVE (Neg); URINE BARBITUATE SCREEN NEGATIVE (Neg); URINE BENZODIAZEPINES SCREEN NEGATIVE (Neg); URINE CANNABINOID SCREEN POSITIVE (Neg); URINE COCAINE SCREEN NEGATIVE (Neg); URINE METHADONE SCREEN NEGATIVE (Neg); URINE OPIATE SCREEN NEGATIVE (Neg); URINE PHENCYCLIDINE SCREEN NEGATIVE (Neg)
[2025-05-31] MEDS: CefTRIAXone 2gm/D5W 50ml BAG 50 ML IV ONE (11:41)
[2025-05-31] MEDS: normal saline 1000ml 2,000 ML IV ONE (11:45)
--- NOTE | 2025-05-31 13:27 | RADIOLOGY REPORT ---
Exam: CT CT ABDOMEN PELVIS History: ABD PAIN Comparison Study: None TECHNIQUE: Multidetector CT of the abdomen was performed from lung bases to pubic symphysis. Imaging was performed without IV contrast. Axial, coronal and sagittal multiplanar reformats were obtained fr om the axial data set by the technologist. Radiation Dose Information: Dose-length product is 672 mGy*cm FINDINGS: Limited sections of the lung bases demonstrate no focal pulmonary mass. The liver, spleen, pancreas, and both adrenal glands demonstrate no acute findings. Hepatomegaly to 1 9.7 cm. The gallbladder is unremarkable. The stomach is unremarkable. The small bowel loops are not dilated. The appendix is not clearly identified, although there are no secondary signs of appendicitis. No colonic obstruction. Bilateral kidneys are unremarkable. No hydronephrosis. The urinary bladder is distended. No significant lymphadenopathy. No free air or free fluid. The aorta and IVC demonstrate no acute findings. Visualized osseous structures demonstrate no acute abnormality. IMPRESSION: 1. Limited evaluation in the absence of IV contrast. 2. No acute intra-abdominal process. 3. If there is continued concern for abdominal infection or pathology, CT with IV contrast is recomme nded.
[2025-05-31] MEDS ORDERED: magnesium hydroxide 30ml (MOM) UD suspension PO PRN (14:05)
[2025-05-31] MEDS ORDERED: mag hydrox/Alum hydrox/simeth 30ml oral suspension PO PRN (14:05)
[2025-05-31] MEDS ORDERED: magnesium sulf-water 4G/100mL 100 ML IV PRN (14:05)
[2025-05-31] MEDS ORDERED: magnesium sulf-water 2g/50mL 50 ML IV PRN (14:05)
[2025-05-31] MEDS ORDERED: potassium Cl 40MEQ/1/2NS 520ml 520 ML IV PRN (14:05)
[2025-05-31] MEDS ORDERED: potassium Cl 20 mEq SR tablet PO PRN ×2 (14:05)
[2025-05-31] MEDS ORDERED: magnesium Cl slow-release 64mg tablet PO PRN (14:05)
[2025-05-31] MEDS: HYDROmorphone/PF 0.2 MG/ML SYRINGE IV PRN (14:22)
[2025-05-31] MEDS: HYDROcodone/acetaminophen 5mg/325mg tablet PO PRN (14:29)
[2025-05-31] MEDS: enoxaparin 40mg/0.4ml syringe SUBCUT SCH (14:40)
[2025-05-31 14:47] LABS: CHOL/HDL RATIO 1.9 (0.00-4.99); LDL CHOLESTEROL 61 MG/DL (50-100)
--- NOTE | 2025-05-31 14:47 | HISTORY AND PHYSICAL-Residence ---
History & Physical Providers to CC Resident Creating Document: LYNNETTE EMANUEL RES CC: ARLIN CORTEZ MD ~ History of Present Illness [facility] [place] Reason for Admit\Complaint: UTI History of Present Illness This is a 39-year-old female with past medical history of Crohn's disease, interstitial cystitis presented in ER with complain bilateral flank pain. She reports that one week ago she experienced bilateral flank pain which is continues graded as 5-6/10 intensity sharp and crampy, which is radiating to her lower abdomen both thighs and vagina. The pain is worsened by movement and prevents her from lying flat completely, for which she keeps her posture elevated. She used Tylenol and naproxen which provided no relief however heating pad gave her little relief, In addition to that she also reports urinary frequency, burning sensation while urination and a sensation of incomplete bladder emptying. She also reports blood in urine since 2 days which is mild in quantity. She reports associated symptoms such as nausea and feeling cold. She was also seen in ER yesterday for similar complaint and was discharged with antibiotics and she thinks that her symptoms have worsened since then. She had multiple UTIs while she was a teenager and two months ago she she had a bacterial vaginosis. She currently has no primary care her previous PCP was Monisha Abdi at [facility]. Last Colonscopy was done a year ago, her Process Inspector is at [facility] Allergies: Coded Allergies: amoxicillin (Verified Allergy, Unknown, hives, 04/08/25) sumatriptan (Verified Allergy, Unknown, 04/08/25) Home Medications Home Medications Active Vantin (Cefpodoxime Proxetil) 200 Mg Tablet 1 Tab PO Q12H 7 Days Pyridium (Phenazopyridine HCl) 100 Mg Tablet 1 Tab PO Q8H 2 Days Zanaflex (Tizanidine HCl) 4 Mg Capsule 1 Cap PO Q8H 10 Days Ondansetron Odt (Ondansetron HCl) 4 Mg Tab.rapdis 1 Tablet PO Q6H PRN Cipro (Ciprofloxacin) 500 Mg Tablet 1 Tablet PO BID Reported Proventil Nebs* (Albuterol) 2.5 Mg/0.5 Ml Vial.neb 2.5 Mg IH Q4H PRN Prednisone* (Prednisone) 5 Mg Tablet 4 Tab PO DAILY Humira Pen (Adalimumab) 40 Mg/0.4 Ml Pen.ij.kit 1 Syr SUBCUT Q2W 28 Days Past Medical History Past Medical History Crohn's disease Bacterial vaginosis Endometriosis Chronic pelvic pain since 20 years. Past Surgical History Surgical History Comment Hysterectomy Family History Family History: Diabetes grandmother (patient dont remember which type) (mom and dad side grandmother diabetes) FH: breast cancer (Aunt had breast cancer) FH: cancer (Grand pa) FH: hypertension (Grandma and grandpa) FH: testicular cancer (Grandpa) Past Social History Social History Comment She started smoking when she was 12 years old, quit smoking 10 years ago before that used to smoke 1-2 packs a day. Never drunk alcohol Currently smokes weed every day last weed was yesterday She lives in home with her kids, she is currently unemployed and have filed a disability before that used to work as a customer service. Alcohol Use: Occasionally ROS All Other Systems: Reviewed and Negative ROS General: Well alert, oriented, not confused, not agitated, not in acute distress, well cooperated during the physical. HEENT: Conjunctive are pink, sclerae clear, no icterus, pupil is equal in both sides, reactive to light, no ear discharge, no pharyngeal erythema or an edema. Neck: Supple, no JVD, no lymphadenopathy and thyromegaly. Chest: Equal air entry on both lungs, no added sounds, no wheeze. Cardiovascular: S1-S2 regular sinus rhythm and, regular rate, no gallops, no rubs, no murmurs Abdomen: Bowel sounds present on auscultation, soft, diffusely tender abdomen, no guarding, no rigidity Extremities: No obvious deformities, no pitting edema bilaterally, capillary refill intact, peripheral pulsations are intact on both sides Central Nervous System: No focal neurological deficits, no motor or sensory weakness in all 4 extremities, could move all 4 extremities, 2+ deep tendon reflexes, negative Babinski. Musculoskeletal: No joint swelling,inflammations,and CVA tenderness Geniurinary: She reports bilateral flank pain radiating to lower abdomen ,thighs and vagina Genitourinary: Reports: flank pain Exam Vitals: Vital Signs Date Time Temp Pulse Resp B/P (MAP) Pulse Ox O2 Delivery O2 Flow Rate FiO2 05/31/25 14:29 13 9/7/25 12:15 96.8 50 105/61 (76) 98 0 General: General: awake, alert oriented to place, time, and person HEENT: No pallor present, no icterus, moist mucous membranes Neck: No masses and tenderness Resp: Unlabored. Lungs clear to auscultation bilaterally. Chest: Normal expansion. Cardiovascular: Regular Rate and rhythm, normal S1 and S2 without murmur, rub or gallop Abdomen: Soft and diffusely tender,bilaterally flank tenderness,no organomegaly, no guarding and rigidity, bowel sounds present Neuro: No focal weakness in the upper and lower limb muscles, power of the muscles 5/5 bilateral upper and lower extremities, normal reflexes bilaterally. Cranial nerves intact Extremities: No cyanosis,clubbing or edema MusculoSkeletal: No arthalagia or Myalgia Skin: Warm and Dry. No lesions Psych: Normal affect Diagnostic Data Last Recorded Lab Results: 05/31/25 0954 05/31/25 0954 Advance Care Planning Advanced Care plannin - 30 Minutes (I spent 17 minutes in discussing various resuscitative measures with the patient and she chose to be full code.) Additional Plan This is a 39-year-old female with past medical history of Crohn disease interstitial cystitis presented here with complain of bilateral flank pain since one week UA suggestive of UTI and we are admitting her in view of possbile acute pyelonephritis. Acute Bilateral Pyelonephritis UA suggestive of UTI CVA tenderness highly suggestive of pyelonephritis CT abdomen pelvis: No acute intra-abdominal process. Patient one dose of ceftriaxone in the ER, norco and dilaudid in ER She also received 2 L of NS in ER Continue pain med as needed Started patient on Rocephin 1 g Started patient on Pyridium 100 mg Follow up with renal ultrasound,Urine culture and blood culture DVT Prophylaxis: Lovenox Diet: Regular diet Code Status: Full Code Date of Service: May 31, 2025 Billing Provider: ARLIN CORTEZ MD,LYNNETTE, RES May 31, 2025 14:47
[2025-05-31] MEDS: normal saline 1000ml 1,000 ML IV SCH (16:20)
[2025-05-31 17:13] VITALS: BP 108/54; PULSE 48; RESP 17; TEMP 97.6; O2SAT 100
[2025-05-31 18:00] VITALS: BP 111/71; PULSE 63; RESP 16; TEMP 97.6; O2SAT 99
[2025-05-31] MEDS: K and/or MAG REPLACEMENT MC SCH (19:32)
[2025-05-31] MEDS: phenazopyridine 100mg tablet PO SCH (19:32)
[2025-05-31] MEDS: docusate sod 100mg capsule PO SCH (19:32)
--- NOTE | 2025-05-31 19:34 | RADIOLOGY REPORT ---
EXAM: US ULTRASOUND KIDNEY NON VASC INDICATION: suspicious for pyelonephritis TECHNIQUE: Multiple real-time sonographic images of the kidneys and bladder were obtained. COMPARISON: None Findings: Right kidney measures 9.8 x 4.4 x 5.6 cm with normal contours, echotexture, and cortical thickness. N o evidence of hydronephrosis, calculi, cystic or solid lesions. Left kidney measures 11.0 x 5.9 x 4.6 cm with normal contours, echotexture, and cortical thickness. N o evidence of hydronephrosis, calculi, cystic or solid lesions. Urinary bladder is decompressed. Prevoid volume 0 mL. Impression: 1. Asymmetric kidneys, [id number]. Otherwise grossly unremarkable. 2. Urinary bladder is decompressed.
[2025-05-31 20:00] VITALS: RESP 16
[2025-05-31 22:00] VITALS: BP 106/63; PULSE 58; RESP 20; TEMP 97.9; O2SAT 99
[2025-06-01 05:00] VITALS: BP 95/50; PULSE 67; RESP 16; TEMP 97.8; O2SAT 96
[2025-06-01 05:38] LABS: MEAN PLATELET VOLUME 8.6 FL (7.4-10.4); RED CELL DISTRIBUTION WIDTH 13.7 % (11.5-14.5)
[2025-06-01 05:55] LABS: APTT 27 SECONDS (22-32); INR 1.1 INR
[2025-06-01 05:58] LABS: CREATININE 0.52 MG/DL (0.40-0.90); PHOSPHORUS 4.2 MG/DL (2.3-4.5); TOTAL CARBON DIOXIDE 29.7 MMOL/L (24-32); eCRCL 132 ML/MIN; eGFR > 90 ML/MIN
--- NOTE | 2025-06-01 08:23 | ELECTROCARDIOGRAPH REPORT ---
[facility] Test Date: 2025-06-01 Test Time: 08:21:38 Pat Name: YANDY SALAS Department: [facility] Patient ID: [facility]-[id number] Room: [place] [id number] [address] Gender: F Health And Wellness Coach: TANJA : 1985 Requested By: ISAAC QUINONES Order Number: [id number] Reading MD: Dr. MARGARITA Dias Measurements Intervals [place] Rate: 55 P: 68 PA: 161 QRS: 75 QRSD: 89 T: 67 QT: 429 QTc: 411 Interpretive Statements Sinus bradycardia Electronically Signed On 06-01-2025 19:24:[address] MARGARITA Dias Please click the below link to view image of tracing.
[2025-06-01] MEDS: ondansetron/PF 4mg/2ml inj IV PRN (08:26)
[2025-06-01] MEDS: CefTRIAXone/D5W-Rocephin 1gm 50 ML IV SCH (08:26)
[2025-06-01 10:00] VITALS: BP 93/55; PULSE 60; RESP 17; TEMP 98.8; O2SAT 97
[2025-06-01] MEDS ORDERED: CEFD300C3 PO (12:54)
[2025-06-01] MEDS ORDERED: LACT1CAP26 PO (12:54)
[2025-06-01] MEDS ORDERED: HYDR-3965 PO (13:05)
--- NOTE | 2025-06-01 15:29 | DISCHARGE SUMMARY-Residence ---
Discharge Summary Providers to CC Resident Creating Document: JEWEL LOWE, RES ~ Discharge Summary Admission Diagnosis: UTI Hospital Course DATE OF ADMISSION: 05/31/2025 DATE OF DISCHARGE: 06/01/2025 Discharge Diagnosis\Comment: Acute pyelonephritis Operations\Procedures: None Consultants: None Complications: None Condition on DC: Stable New Medications: Cefdinir (Cefdinir) 300 Mg Capsule 1 CAP PO Q12H for 7 Days, #14 CAP 0 Refills Hydrocodone Bit/Acetaminophen 5/325 MG ([place] 5/325 MG) 5 Mg/325 Mg Tablet 1 TAB PO Q6H PRN for pain, #10 TAB Lactobacillus Rhamnosus (Culturelle) 10 Billion Cell Capsule 1 CAP PO BID for 30 Days, #60 CAP 0 Refills Discharge Summary: HPI: This is a 39-year-old female with past medical history of Crohn's disease, interstitial cystitis presented in ER with complain bilateral flank pain. She reports that one week ago she experienced bilateral flank pain which is continues graded as 5-6/10 intensity sharp and crampy, which is radiating to her lower abdomen both thighs and vagina. The pain is worsened by movement and prevents her from lying flat completely, for which she keeps her posture elevated. She used Tylenol and naproxen which provided no relief however heating pad gave her little relief, In addition to that she also reports urinary frequency, burning sensation while urination and a sensation of incomplete bladder emptying. She also reports blood in urine since 2 days which is mild in quantity. She reports associated symptoms such as nausea and feeling cold. She was also seen in ER yesterday for similar complaint and was discharged with antibiotics and she thinks that her symptoms have worsened since then. She had multiple UTIs while she was a teenager and two months ago she she had a bacterial vaginosis. She currently has no primary care her previous PCP was Monisha Abdi at [facility]. Last Colonscopy was done a year ago, her Sheet Metal Shop Helper is at [facility]. Hospital course: 39 years old female patient came to the hospital with chief complaint of abdominal pain. Due to her clinical presentation the patient was admitted with acute pyelonephritis. The patient was started on antibiotics based on ceftriaxone. CT scan of the abdomen was obtained which did not show any signs of acute abdomen. The patient was also started on IV fluids for hydration based on sodium chloride at 100 mL/hour. Upon the following day the patient reported improvement of abdominal pain. Tolerating diet, the patient is home independent. The patient remained hemodynamically stable. The patient recovered sooner than expected for her diagnosis. The patient will be discharg ed home. Discharge course: The patient remained hemodynamically stable. The patient will be discharged with the following instructions: Come back to the emergency department or call 911 if severe back pain, abdominal pain, fever sensation, chest pain, is evidenced. Take cefdinir one tablet of 300 mg every 12 hours. [place] [address] mmu every 12 hours. Follow-up with your primary care physician within two weeks. Keep well hydrated with a least 2 L of water daily. Follow-up with your sliver handler at [facility] for your Crohn disease. Physical exam: General: Well alert, well oriented, not confused, not agitated, not in acute distress, well cooperated during the physical. HEENT: Conjunctive are pink, sclerae clear, no icterus, pupil is equal in both sides, reactive to light, no ear discharge, no pharyngeal erythema or an edema. Neck: Supple, no JVD, no lymphadenopathy and thyromegaly. Chest: Equal air entry on both lungs, no additional sounds no rhonchi no wheezing at the moment. Cardiovascular: S1-S2 regular sinus rhythm and, regular rate, no gallops, no rubs, no murmurs Abdomen: No visible peristalsis, Bowel sounds present on auscultation, soft, nontender, no guarding, no rigidity Extremities: No obvious deformities, no pitting edema bilaterally, capillary refill intact, peripheral pulsations are intact on both sides Central Nervous System: No focal neurological deficits, no motor or sensory weakness in all 4 extremities, could move all 4 extremities, 2+ deep tendon reflexes, negative Babinski. Musculoskeletal: No joint swelling, deformities, inflammations, and no scoliosis and back tenderness Skin: Warm and dry. Addendum by Dr. Quinones: We received a fax from the pharmacy about discrepancy in the antibiotics. She was prescribed cefpodoxime 200 mg twice a day for a week on 05/31 she was likely from her ER discharge and was prescribed cefdinir 300 mg p.o. twice a day for a week when she was discharged after admission on 06/01/2025. I called the [facility] pharmacy at [phone] and got the above medication information. The pharmacist told me that the patient was only given cefdinir for three days as they do not have the stopped. I asked them not to give her anymore cefdinir. The patient has already picked up cefpodoxime on 05/31. I called the patient at [phone]. She mentioned that she has started taking cefdinir and not cefpodoxime. I asked her to continue to take cefdinir for three days. If symptoms persist, then asked her to continue the course of cefpodoxime for a week which is the supply that she got and then stop taking antibiotics. The patient understands and agrees. She was happy that I called and gave her the instructions. Vital Signs Date Time Temp Pulse Resp B/P (MAP) Pulse Ox O2 Delivery O2 Flow Rate FiO2 06/01/25 10:00 98.8 60 17 93/55 (68) 97 Room Air 06/01/25 08:00 0.0 Laboratory Tests Test 05/31/25 09:54 05/31/25 10:35 05/31/25 11:28 06/01/25 04:46 White Blood Count 8.1 X10'3 4.3 X10'3 Red Blood Count 4.21 X10'6 3.54 X10'6 Hemoglobin 12.5 g/dl 10.5 g/dl Hematocrit 37.0 % 30.9 % Mean Corpuscular Volume 87.7 FL 87.5 FL Mean Corpuscular Hemoglobin 29.6 PG 29.6 PG Mean Corpuscular Hemoglobin Concent 33.7 g/dL 33.9 g/dL Red Cell Distribution Width 13.8 % 13.7 % Platelet Count 261 X10'3 209 X10'3 Mean Platelet Volume 8.5 FL 8.6 FL Neutrophils (%) (Auto) 65.7 % 46.8 % Lymphocytes (%) (Auto) 24.4 % 42.4 % Monocytes (%) (Auto) 6.8 % 7.0 % Eosinophils (%) (Auto) 2.6 % 3.0 % Basophils (%) (Auto) 0.5 % 0.8 % Neutrophils # (Auto) 5.3 X10'3 2.0 X10'3 Lymphocytes # (Auto) 2.0 X10'3 1.8 X10'3 Monocytes # (Auto) 0.6 X10'3 0.3 X10'3 Eosinophils # (Auto) 0.2 X10'3 0.1 X10'3 Basophils # (Auto) 0.0 X10'3 0.0 X10'3 CBC Comment Sodium Level 139 MMOL/L 142 MMOL/L Potassium Level 4.9 MMOL/L 4.4 MMOL/L Chloride Level 103 MMOL/L 108 MMOL/L Carbon Dioxide Level 31.4 MMOL/L 29.7 MMOL/L Anion Gap 5 4 Blood Urea Nitrogen 15 MG/DL 13 MG/DL Creatinine 0.78 MG/DL 0.52 MG/DL Estimated GFR/1.73 m2 83 ML/MIN > 90 ML/MIN BUN/Creatinine Ratio 19.2 25.0 Glucose Level 88 MG/DL 75 MG/DL Hemoglobin A1c 5.0 % Calcium Level 9.0 MG/DL 8.5 MG/DL Magnesium Level 2.4 MG/DL 2.0 MG/DL Total Bilirubin 0.6 MG/DL 0.6 MG/DL Aspartate Amino Transf (AST/SGOT) 21 U/L 34 U/L Alanine Aminotransferase (ALT/SGPT) 42 U/L 50 U/L Alkaline Phosphatase 87 IU/L 62 IU/L Total Protein 7.4 G/DL 5.6 G/DL Albumin 3.9 G/DL 3.1 G/DL Globulin 3.5 G/DL 2.5 G/DL Albumin/Globulin Ratio 1.1 1.2 Triglycerides Level 58 MG/DL Cholesterol Level 157 MG/DL LDL Cholesterol 61 MG/DL HDL Cholesterol 83 MG/DL Cholesterol/HDL Ratio 1.9 Amylase Level 153 U/L Lipase 152 U/L 33 U/L Procalcitonin < 0.05 NG/ML Thyroid Stimulating Hormone (TSH) 1.23 ulU/ml Chemistry Comments Ethyl Alcohol Level < 10 MG/DL Urine Specimen Description Voided Urine Color [place] Urine Clarity Cloudy Urine pH Urine Specific [place] Urine Protein mg/dl Urine Glucose (UA) mg/dl Urine Ketones mg/dl Urine Occult Blood Urine Nitrite Urine Bilirubin Urine Urobilinogen E.U/dL Urine Leukocyte Esterase Urine RBC 0-2 /HPF Urine WBC 30-50 /HPF Urine WBC Clumps Few /HPF Urine Squamous Epithelial Cells Few /LPF Urine Bacteria 1+ /HPF Urine Mucus Few /LPF Urine Culture Indicated Indicated Volume Urine Centrifuged 10 ml Urine HCG, Qualitative Negative Urine Comment See note Urine Opiates Screen Negative Urine Methadone Screen Negative Urine Fentanyl Screen Negative Urine Barbiturates Screen Negative Urine Phencyclidine Screen Negative Urine Amphetamines Screen Negative Urine Benzodiazepines Screen Negative Urine Cocaine Screen Negative Urine Cannabinoids Screen Positive Drug Screen Comment Lactic Acid Level 1.1 MMOL/L Prothrombin Time 10.9 SECONDS INR International Normalized Ratio 1.1 INR Activated Partial Thromboplast Time 27 SECONDS Coagulation Comments Phosphorus Level 4.2 MG/DL Imaging: Abdominal/pelvis CT scan: Limited evaluation in the absence of IV contrast. No acute intra-abdominal process. If there is continued concern for abdominal infection or pathology, CT with IV contrast is recommended. Renal ultrasound: Asymmetric kidneys, [id number]. Otherwise grossly unremarkable. Urinary bladder is decompressed. *Problems/Diagnosis: (1) Crohn disease Status: Chronic (2) Pyelonephritis Status: Acute Total Time Spent on D/C: > 30 Minutes Date of Service: Jun 01, 2025 Billing Provider: ARLIN CORTEZ MD, FRANCO LUIS, RES Jun 01, 2025 15:22 ISAAC QUINONES RES Jun 02, 2025 18:01
== END 2025-06-01 13:30 | disposition home or self-care (01) | DRG 463 ==
LOC: ER 08:56 → ED HOLD 13:21 → SUR 3N 15:45
PROVIDERS: ADMIT Family Medicine; ATTEND Family Medicine
DX: N10 Acute pyelonephritis (principal); K85.90 Acute pancreatitis without necrosis or infection, unspecified; I10 Essential (primary) hypertension; Z90.710 Acquired absence of both cervix and uterus; Z88.1 Allergy status to other antibiotic agents
CPT/HCPCS: 36415; 74176; 76770; 80053; 80061; 80305; 80320; 81001; 81025; 82150; 83036; 83605; 83690; 83735; 84100; 84145; 84443; 85025; 85610; 85730; 87040; 87081; 87088; 93005; 96365; 96375; 99285; G0378; J0696; J1171; J1650; J2405; J7030

== ENCOUNTER 2025-08-04 00:33 | Emergency (ER) | payer MEDICAID ==
[~2025-08-04] VITALS: Ht 165.1 cm; Wt 72.3 kg
[~2025-08-04 00:33] MED LIST changes: -ADAL40PE5 SUBCUT; -ALB0.5UD IH; +CEFD300C3 PO; -CEFP200T13 PO; -CIPR-259 PO; +LACT1CAP26 PO; -ONDA-243 PO; -PHEN-824 PO; -PRED5TAB PO; -TIZA4CAP PO
[2025-08-04 00:36] VITALS: TEMP 97.7
--- NOTE | 2025-08-04 01:16 | Physician Documentation ---
History of Present Illness ~ General Chief Complaint: General Stated Complaint: BODY PAIN Time Seen by MD: 00:52 Primary Medical Doctor: [facility] in [place] History of Present Illness Initial Comments Patient presents to the emergency room with whole-body pain. Patient has had this before and she states that they tell her that has related to her Crohn's. She is experiencing a Crohn's flare. Pain that has affecting her sleep. When asked what her expectations are for tonight she states she would just like her pain controlled so she can sleep Medication Reconciliation Allergies: Coded Allergies: amoxicillin (Verified Allergy, Unknown, hives, 04/08/25) sumatriptan (Verified Allergy, Unknown, 04/08/25) Scheduled Cefdinir (Cefdinir), 1 CAP PO Q12H Lactobacillus Rhamnosus (Culturelle), 1 CAP PO BID Past Medical History Past Medical History: UTI Past Surgical History: hysterectomy Patient History: Diabetes grandmother (patient dont remember which type) (mom and dad side grandmother diabetes) FH: breast cancer (Aunt had breast cancer) FH: cancer (Grand pa) FH: hypertension (Grandma and grandpa) FH: testicular cancer (Grandpa) Alcohol Use: Occasionally Review of Systems ROS All review of systems negative except as per HPI Physical Exam Physical Exam Vital Signs: Temperature: 97.7, Source: Temporal, Heart Rate: 85, Respiratory Rate: 16, BP: 129/99, Pulse Oximetry: 98, Weight: 72.300 Oxygen Flow Rate: 0 Physical Exam General: Patient is awake, alert, oriented x4 in no acute distress. Tearful Head: Normocephalic and atraumatic. Eyes: Conjunctival normal. EOMI. PERRL. ENT: Mucous membranes moist. Neck: Supple, trachea is midline. Chest: Clear to auscultation bilaterally without rales, rhonchi, or wheezes. There is no accessory muscle use or retractions. Cardiac: RRR without murmurs, gallops, or rubs. Abd: Soft, nondistended, diffuse abdominal tenderness without peritonitis Progress Results/Orders Results/Orders Orders - MIKI DODSON MD Urinalysis, Cult If Indicated (08/04/25 00:40) Hcg, Ur Ql (08/04/25 00:40) Drug Screen, Urine (08/04/25 00:53) Triamcinolone Acet 40mg/Ml Inj (Kenalog- (08/04/25 02:05) Fentanyl/Pf (Fentanyl 0.05 Mg/Ml Syringe (08/04/25 02:05) Oxycodone Immed Release Tablet (Oxy Ir T (08/04/25 02:05) Completed Orders - MIKI DODSON MD Cbc/Diff (08/04/25 00:40) BMP (08/04/25 00:40) Lipase (08/04/25 00:40) CMP (08/04/25 00:40) Ondansetron Inj. (Zofran 4mg/2ml Vial) (08/04/25 01:25) Morphine 4mg/Ml Inj. (Morphine Inj.) (08/04/25 01:25) Acetaminophen 1,000mg/100ml Iv (Ofirmev (08/04/25 01:45) Dexamethasone Inj (Decadron 4mg/Ml Inj) (08/04/25 02:05) Medications Received in ER Medications (Trade) Dose Ordered Sig/Radha Route PRN Reason Start Time Stop Time Status Last Admin Dose Admin (Zofran 4mg/2ml vial) 4 mg ONCE ONCE IV 08/04/25 01:25 08/04/25 01:26 DC 08/04/25 01:43 4 MG (morphine inj.) 4 mg ONCE ONCE IV 08/04/25 01:25 08/04/25 01:26 DC 08/04/25 01:43 4 MG Acetaminophen 100 ml @ 400 mls/hr ONCE ONCE IV 08/04/25 01:45 08/04/25 01:59 DC 08/04/25 01:48 400 MLS/HR Vital Signs 08/04/25 08/04/25 08/04/25 00:36 01:50 01:52 Temp 97.7 Pulse 85 78 Resp 16 18 16 B/P (MAP) 129/99 114/79 (91) Pulse Ox 98 98 O2 Flow Rate 0 Laboratory Tests Test 08/04/25 00:55 White Blood Count 6.7 Red Blood Count 4.32 Hemoglobin 12.9 Hematocrit 38.1 Mean Corpuscular Volume 88.0 Mean Corpuscular Hemoglobin 29.9 Mean Corpuscular Hemoglobin Concent 34.0 Red Cell Distribution Width 12.9 Platelet Count 264 Mean Platelet Volume 8.6 Neutrophils (%) (Auto) 43.7 Lymphocytes (%) (Auto) 44.0 Monocytes (%) (Auto) 7.8 Eosinophils (%) (Auto) 3.5 Basophils (%) (Auto) 1.0 Neutrophils # (Auto) 2.9 Lymphocytes # (Auto) 2.9 Monocytes # (Auto) 0.5 Eosinophils # (Auto) 0.2 Basophils # (Auto) 0.1 CBC Comment Sodium Level 144 Potassium Level 3.9 Chloride Level 107 Carbon Dioxide Level 31.3 Anion Gap 6 L Blood Urea Nitrogen 17 Creatinine 0.72 Estimated GFR/1.73 m2 90 BUN/Creatinine Ratio 23.6 H Glucose Level 91 Calcium Level 8.8 Total Bilirubin 0.2 Aspartate Amino Transf (AST/SGOT) 7 L Alanine Aminotransferase (ALT/SGPT) 17 Alkaline Phosphatase 94 Total Protein 7.4 Albumin 4.2 Globulin 3.2 Albumin/Globulin Ratio 1.3 Lipase 105 H Chemistry Comments Medical Decision Making Additional information obtaine: old records Findings Patient presents to the emergency room with abdominal pain. Differentials include but are not limited to Crohn's flare, appendicitis pancreatitis gastritis small-bowel obstruction diverticulitis therefore emergent labs ordered. Labs reassuring. Slight elevation of lipase although it is believe t his is reflective of abdominal distention and inflammation rather than pancreatitis. Patient has been experiencing a Crohn's flare therefore he had not feel CT scan is necessary in the light of reassuring labs. We will treat her acute pain. After discussing risks benefits of steroids and utilizing shared decision-making I started patient on steroids. The need to call her doctor tomorrow for management discussed as well as ER precautions Differential Diagnosis g Departure Disposition: HOME / SELF CARE / HOMELESS Impression: Primary Impression: Exacerbation of Crohn's disease Condition: Fair Discharge Instructions: Crohn's Disease Additional Instructions: Call your doctor tomorrow for management. Return for fevers or uncontrolled symptoms. Referrals: NO PRIMARY CARE PROVIDER (PCP) Prescriptions Tramadol HCl (Tramadol HCl) 50 Mg Tablet 1 TAB PO Q6H PRN PRN for pain, #15 TAB Prov: MIKI DODSON MD 08/04/25 Signature Scribe Signature: No scribe Attestation: The note accurately reflects work and decisions made by me.Miki Dodson MD 08/04/25 02:11 MIKI DODSON MD Aug 04, 2025 01:16
[2025-08-04 01:19] LABS: MEAN PLATELET VOLUME 8.6 FL (7.4-10.4); RED CELL DISTRIBUTION WIDTH 12.9 % (11.5-14.5)
[2025-08-04 01:33] LABS: CREATININE 0.72 MG/DL (0.40-0.90); TOTAL CARBON DIOXIDE 31.3 MMOL/L (24-32); eCRCL 94 ML/MIN; eGFR 90 ML/MIN
[2025-08-04] MEDS: ondansetron/PF 4mg/2ml inj IV ONE (01:43)
[2025-08-04] MEDS: morphine 4 MG/ML inj SYRINge IV ONE (01:43)
[2025-08-04] MEDS: acetaminophen 1,000mg/100ml IV 100 ML IV ONE (01:48)
[2025-08-04] MEDS ORDERED: TRAM50TA2 PO (02:11)
[2025-08-04] MEDS ORDERED: OXYC-658 PO (02:15)
[2025-08-04] MEDS: triamcinolone acetonide 40mg/ml inj IM ONE (02:19)
[2025-08-04] MEDS: dexamethasone 4mg/ml inj IV ONE (02:19)
[2025-08-04] MEDS: fentaNYL/PF 50MCG/1 ML 2ML syringe IV ONE (02:19)
[2025-08-04] MEDS: oxyCODONE IR 5mg (immed. release) tablet PO ONE (02:34)
[2025-08-04 02:41] VITALS: BP 112/68; PULSE 78; RESP 16; O2SAT 99
== END 2025-08-04 02:43 | disposition home or self-care (01) ==
LOC: ER 00:34
DX: K50.90 Crohn's disease, unspecified, without complications (principal); E11.9 Type 2 diabetes mellitus without complications; Z88.1 Allergy status to other antibiotic agents; Z90.710 Acquired absence of both cervix and uterus; Z87.440 Personal history of urinary (tract) infections; Z88.8 Allergy status to other drugs, medicaments and biological substances; Z79.899 Other long term (current) drug therapy; Z72.89 Other problems related to lifestyle
CPT/HCPCS: 36415; 80053; 83690; 85025; 96372; 96374; 96375; 99284; J0131; J1100; J2270; J2405; J3010; J3301